=== PATIENT | male | born 1950 | race Caucasian/White ===

== ENCOUNTER 2017-08-15 09:45 | Inpatient (IN) | payer OTHER ==
[~2017-08-15] VITALS: Ht 185.4 cm; Wt 101.2 kg
--- NOTE | ~2017-08-15 | HC ---
[facility] [place] [address] CONSULTATION Name: MELECIO EAST NIKIA Room #: 349-I ADM IN M.R.#: [id number] Admission: 08/15/17 Attend Phys: Hiren Nelson MD Discharge: Date of : 46 Report #: [id number] THIS REPORT FOR: //name// CC: Hiren MURPHY Physician staff DATE OF SERVICE: 08/15/2017 HISTORY OF PRESENT ILLNESS: This is a 67-year-old male patient who was evaluated by me for visual changes and ataxia. The patient went to sleep around 11:00 feeling fine and then got up around 7:00 this morning with the above described symptoms. Symptoms came spontaneously without trauma. They were moderately severe to severe. They have become somewhat better. They have not deteriorated any. He does have a mild headache associated with that and he wants aspirin for that. He never had any stroke-like symptoms before. He also has what looks like some dressing apraxia with it. REVIEW OF SYSTEMS: Indicate that this patient has a history of hypertension, he takes medications. He does not take his own blood pressure all the time, but when he goes to his family physician his blood pressure is typically unremarkable. He has a history of pancreatitis. I carried out the 14-point review of system. He has visual symptom, but no real cardiac, respiratory, ENT, GI, , musculoskeletal, constitutional, dermatological, hematological, psychiatric, throat or allergic symptom associated with present symptomatology. PAST MEDICAL HISTORY: Negative for stroke. FAMILY HISTORY: Negative for early age stroke. SOCIAL HISTORY: He is retired and he indicates he does not smoke or drink alcohol. PHYSICAL EXAMINATION: The patient's examination indicate he is alert, responsive, able to follow simple and complex command. His speech, concentration, fund of knowledge and memory is at baseline. Cranial nerve examination does indicate rather dense left hemianopsia, which according to him is improving, but he still has on my examination virtually no vision in the left visual field. Otherwise, cranial nerve examinations appear unremarkable. His strength, sensation, reflexes and tone looks unremarkable. There is no meningeal sign. There is no carotid bruit. I could not look at the fundus. His pulses are palpable. He has no edema, cyanosis or jaundice. He is a nicely built individual who does not have any dysmorphic features of eyes, ears and face. He has no evidence of atrial fibrillation and his cardiac examination is unremarkable. No respiratory difficulty or rhonchi was noticed on either side. His blood pressure is 174/80, respiration is 14, pulse is 64 and temperature is [address] [address] CONSULTATION Name: MELECIO EAST [place] Room #: 349-I [facility] IN ..#: [id number] Admission: 08/15/17 Attend Phys: Hiren Nelson MD Discharge: Date of : 46 Report #: [id number] 97.8. LABORATORY DATA: His WBC count is 5.8 and sodium is 141. At one time his B12 level was done for some reason in 2010 and it was low. I reviewed the MRI films myself and then discussed with the radiologist. He has a stroke in the right occipital lobe, which is showing up on diffusion weighted as well as flair images. His vessels are clean and radiologist did not think doing CT angiogram will add anything. IMPRESSION: 1. Right occipital stroke. 2. Multiple other satellite stroke. 3. Need extensive workup to exclude the possibility of embolization from heart. 4. Stroke occurred when the patient was taking 81 mg of aspirin and we may have to switch him to either full aspirin or Plavix depending upon the workup. RECOMMENDATIONS: 1. Echocardiogram. 2. May need JOSE ALFREDO depending upon that. 3. Will need 30 days event monitor to look for atrial fibrillation. 4. More blood workup. 5. His B12 level was low, so his homocysteine level may be high. We cannot check homocysteine in the hospital because of the hospital policies and we will check B12 level again here. 6. Discussed with him about doing exercises and eating healthy. He indicated he will do that. 7. Need to address the question of statin once the patient's LDL and HDL is available. All of it was discussed with the patient in detail. The patient was discussed with Emergency Room physician multiple times and I also discussed with Dr. Nelson who is going to be the admitting physician. I recommended that the patient be put back on the medication he was on for the blood pressure, but no additional blood pressure medication be given to allow permissive hypertension. By: [id number] Carmelo Reaves MD /nt
--- NOTE | ~2017-08-15 | EKG ---
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
--- NOTE | ~2017-08-15 | 2DMMODE ---
[facility] [address] [place] [address] 2 D/M-MODE ECHOCARDIOGRAM Name: MELECIO EAST NIKIA Room #: 349-I ADM IN .R.#: [id number] Admission: 08/15/17 Attend Phys: Hiren Nelson MD Discharge: Date of : 46 Date of Service: 08/15/17 1716 Report #: [id number] THIS REPORT FOR: //name// APPROVED REPORT Study performed: 08/15/2017 14:23:18 EXAM: Comprehensive 2D, Doppler, and color-flow Echocardiogram Patient Location: Bedside Room #: 244 Status: routine BSA: 2.28 HR: 50 bpm Rhythm: NSR Other Information Study Quality: Good Indications CVA/TIA Hypertension/HDD 2D Dimensions RVDd: 39.74 mm LVEF(%): 66.56 (>50%) IVSd: 9.02 (7-11mm) LVOT Diam: 23.34 (18-24mm) LVDd: 41.79 mm PWd: 9.26 (7-11mm) Ascending Ao: 31.72 (22-36mm) LVDs: 26.57 (25-40mm) Aortic Root: 34.70 mm Cannon's LVEF: 66.56 % Volumes Left Atrial Volume (Systole) Single Plane 4CH: 56.32 mL Single Plane 2CH: 53.69 mL LA ESV Index: 26.00 mL/m2 Aortic Valve AoV Peak Perez.: 1.23 m/s AO Peak Gr.: 6.07 mmHg LVOT Max P.45 mmHg LVOT Max V: 0.93 m/s LIANA Vmax: 3.23 cm2 Mitral Valve E/A Ratio: 1.1 [facility] [place] [address] [place] [address] 2 D/M-MODE ECHOCARDIOGRAM Name: MELECIO EAST [place] Room #: 349-I ADM IN .R.#: [id number] Admission: 08/15/17 Attend Phys: Hiren Nelson MD Discharge: Date of : 46 Date of Service: 08/15/17 1716 Report #: [id number] Decel. Time: 190.42 ms MV E Max Perez.: 0.78 m/s MV A Perez.: 0.68 m/s MV PHT: 55.22 ms IVRT: 115.34 ms Pulmonary Valve PV Peak Perez.: 0.70 m/s PV Peak Gr.: 1.97 mmHg Pulmonary Vein P Vein S: 0.69 m/s P Vein A: 0.27 m/s P Vein D: 0.42 m/s P Vein A Dur.: 106.1 msec P Vein S/D Ratio: 1.64 Tricuspid Valve TR Peak Perez.: 2.50 m/s RAP Estimate: 5.00 mmHg TR Peak Gr.: 25.10 mmHg PA Pressure: 30.00 mmHg Left Ventricle The left ventricle is normal size. There is normal LV segmental wall motion. There is normal left ventricular wall thickness. The left ventricular systolic function is normal. The left ventricular ejection fraction is within the normal range. LVEF is 55-60%. The left ventricular diastolic function is normal. Right Ventricle The right ventricle is normal size. The right ventricular systolic function is normal. Atria The left atrium size is normal. Interatrial septum is intact without evidence of ASD or PFO. The right atrium size is normal. Aortic Valve The aortic valve is normal in structure. Trace aortic regurgitation. There is no aortic valvular stenosis. Mitral Valve The mitral valve is normal in structure. Trace mitral regurgitation. No evidence of mitral valve stenosis. Tricuspid Valve The tricuspid valve is normal in structure. Trace tricuspid regurgitation. [facility] [address] [place] [address] 2 D/M-MODE ECHOCARDIOGRAM Name: MELECIO EAST Room #: 349-I ADM IN ..#: [id number] Admission: 08/15/17 Attend Phys: Hiren Nelson MD Discharge: Date of : 46 Date of Service: 08/15/17 1716 Report #: [id number] Pulmonic Valve The pulmonary valve is normal in structure. There is no pulmonic valvular regurgitation. Great Vessels The aortic root is normal in size. IVC is normal in size and collapses >50% with inspiration. Pericardium There is no pericardial effusion. <Conclusion> The left ventricle is normal size. LVEF is 55-60%. The left ventricular diastolic function is normal. The right ventricle is normal size. The left atrium size is normal. The right atrium size is normal. Trace aortic regurgitation. Trace mitral regurgitation. Trace tricuspid regurgitation. The aortic root is normal in size. There is no pericardial effusion. <ELECTRONICALLY SIGNED> By: Jason Villa MD, FACC 08/15/171715 15 15 Jason Villa MD, FACC /INF
[~2017-08-15 09:45] MED LIST: ACETAMINOPHEN325 M1 PO; ALEVE220 MG; ALEVE220 MG PO; ALLOPURINOL 10100 M1 PO; AZOR 5-40 MG T1 EACH PO; CLONAZEPAM PO; COLACE100 MG PO; COLCRYS0.6 MG PO; HYDROCODONE-IB1 EACH PO; KLONOPIN1 MG PO; TRAMADOL 50 MG50 MG
[2017-08-15 09:54] VITALS: BP 168/94
[2017-08-15] MEDS ORDERED: LIPITOR 20 MG T20 M1 PO (09:57)
[2017-08-15] MEDS ORDERED: LOSARTAN POTASS50 MG PO (09:57)
[2017-08-15] MEDS ORDERED: ULORIC40 MG PO (09:57)
[2017-08-15] MEDS ORDERED: ASPIRIN EC325 M1 PO (09:58)
[2017-08-15 10:08] LABS: ABSOLUTE NEUTROPHILS 4.1 thou/uL (1.4-8.2); BASOPHILS 1.2 % (0.0-2.0); EOSINOPHILS 2.4 % (0.0-3.0); HEMATOCRIT 45.4 % (42.0-52.0); HEMOGLOBIN 15.5 gm/dL (14.0-18.0); LYMPHOCYTES 18.3 % (24.0-44.0); MCH 28.3 pg (26.0-34.0); MCHC 34.1 g/dL (28.0-37.0); MONOCYTES 8.1 % (1.0-8.0); PLATELET COUNT 156 thou/uL (150-400); RBC 5.47 mil/uL (4.50-6.00); RDW 14.9 % (10.5-14.5); WBC 5.8 thou/uL (4.0-11.0)
[2017-08-15 10:16] LABS: ANION GAP 7 mmol/L (7-16); BUN 9 mg/dL (7-18); CHLORIDE 107 mmol/L (98-107); CO2 28 mmol/L (21-32); CREATININE 1.1 mg/dL (0.7-1.3); GLUCOSE 120 mg/dL (74-106); POTASSIUM 4.1 mmol/L (3.5-5.1); SODIUM 142 mmol/L (136-145)
[2017-08-15 10:25] LABS: ALBUMIN 3.7 g/dL (3.4-5.0); SGOT 29 U/L (15-37); SGPT 46 U/L (30-65); TOTAL BILIRUBIN 0.6 mg/dL (<0.1-1.0); TOTAL PROTEIN 7.2 g/dL (6.4-8.2); TROPONIN-I <0.06 ng/mL (<0.06)
[2017-08-15 10:34] LABS: PROTIME 9.9 Seconds (9.3-11.4)
[2017-08-15 10:43] LABS: URINE BLOOD NEGATIVE (Negative); URINE CLARITY CLEAR; URINE COLOR YELLOW; URINE GLUCOSE-RANDOM* NEGATIVE (Negative); URINE KETONES TRACE (Negative); URINE LEUKOCYTES-REFLEX NEGATIVE (Negative); URINE NITRITE-REFLEX NEGATIVE (Negative); URINE PROTEIN (DIPSTICK) TRACE (Negative); URINE SPECIFIC GRAVITY >= 1.030 (1.005-1.035); URINE UROBILINOGEN 0.2 E.U./dl (0.2-1.0)
[2017-08-15 10:46] LABS: ICTOTEST (BILI CONFIRMATORY) Negative (Negative); URINE BILIRUBIN NEGATIVE (Negative)
[2017-08-15 12:43] VITALS: BP 128/60
[2017-08-15 13:18] VITALS: BP 174/80
[2017-08-15 16:41] VITALS: BP 164/94
[2017-08-15 19:10] VITALS: BP 149/84
[2017-08-16 04:50] VITALS: BP 132/79
[2017-08-16 05:23] LABS: ABSOLUTE NEUTROPHILS 4.6 thou/uL (1.4-8.2); BASOPHILS 1.2 % (0.0-2.0); EOSINOPHILS 1.6 % (0.0-3.0); HEMATOCRIT 40.9 % (42.0-52.0); HEMOGLOBIN 14.2 gm/dL (14.0-18.0); LYMPHOCYTES 17.2 % (24.0-44.0); MCH 28.1 pg (26.0-34.0); MCHC 34.8 g/dL (28.0-37.0); MCV 80.8 fL (80.0-100.0); MONOCYTES 9.4 % (1.0-8.0); PLATELET COUNT 142 thou/uL (150-400); POLYS 70.6 % (36.0-66.0); RBC 5.06 mil/uL (4.50-6.00); RDW 14.7 % (10.5-14.5); WBC 6.6 thou/uL (4.0-11.0)
[2017-08-16 06:25] LABS: ANION GAP 11 mmol/L (7-16); BUN 10 mg/dL (7-18); CALCIUM 8.3 mg/dL (8.5-10.1); CHLORIDE 105 mmol/L (98-107); CHOLESTEROL 116 mg/dL (<200); CO2 25 mmol/L (21-32); GLUCOSE 95 mg/dL (74-106); HDL CHOLESTEROL 40 mg/dL (>40); LDL CHOLESTEROL 60 mg/dL (<100); MAGNESIUM 1.7 mg/dL (1.8-2.4); POTASSIUM 3.6 mmol/L (3.5-5.1); SODIUM 141 mmol/L (136-145); TC:HDL 2.9 Ratio (Not establshd); TRIGLYCERIDE 84 mg/dL (<150); VLDL 17 mg/dL (<40)
[2017-08-16 06:42] LABS: TSH 1.566 uIU/mL (0.358-3.740)
[2017-08-16 07:07] VITALS: BP 136/76
[2017-08-16] MEDS ORDERED: ASPIR 8181 MG PO (08:46)
[2017-08-16] MEDS ORDERED: PLAVIX 75 MG TA75 M1 PO (08:46)
[2017-08-16 09:45] VITALS: BP 136/76
== END 2017-08-16 10:16 | disposition home or self-care (01) | DRG 64 ==
LOC: ER 09:45 → 3W 12:31 → EROBS 12:31 → ICU 13:15 → 3W 16:06 → ENTRNSPT 08-16 10:09 → EDTRNSPTSTS 08-16 10:11 → 3W 08-16 10:16
PROVIDERS: Nurse Practitioner; Nurse Practitioner Family; Psychiatry & Neurology Neuromuscular Medicine
DX: I63.9 Cerebral infarction, unspecified (principal); E43 Unspecified severe protein-calorie malnutrition; G40.909 Epilepsy, unspecified, not intractable, without status epilepticus; I10 Essential (primary) hypertension; M19.90 Unspecified osteoarthritis, unspecified site; E78.5 Hyperlipidemia, unspecified; M10.9 Gout, unspecified; F17.220 Nicotine dependence, chewing tobacco, uncomplicated; Z60.2 Problems related to living alone; Z88.8 Allergy status to other drugs, medicaments and biological substances; Z88.6 Allergy status to analgesic agent; Z79.82 Long term (current) use of aspirin; Z79.899 Other long term (current) drug therapy; Z68.29 Body mass index [BMI] 29.0-29.9, adult
CPT/HCPCS: 10879

== ENCOUNTER → 2018-02-19 | Outpatient (CLI) | payer OTHER ==
[~2018-02-19] MED LIST changes: +ASPIR 8181 MG PO; +ASPIRIN EC325 M1 PO; +LIPITOR 20 MG T20 M1 PO; +LOSARTAN POTASS50 MG PO; +PLAVIX 75 MG TA75 M1 PO; +ULORIC40 MG PO
== END ==
LOC: MRI 14:36
DX: I63.40 Cerebral infarction due to embolism of unspecified cerebral artery (principal)

== ENCOUNTER → 2019-07-23 | Outpatient (CLI) | payer OTHER | LOC: SJCVC 11:00 | DX: R00.2 Palpitations (principal); I48.0 Paroxysmal atrial fibrillation; E78.5 Hyperlipidemia, unspecified; D68.59 Other primary thrombophilia; I10 Essential (primary) hypertension; I63.431 Cerebral infarction due to embolism of right posterior cerebral artery; K21.9 Gastro-esophageal reflux disease without esophagitis; Z82.49 Family history of ischemic heart disease and other diseases of the circulatory system; Z87.891 Personal history of nicotine dependence; Z79.899 Other long term (current) drug therapy ==

== ENCOUNTER → 2020-02-04 | Outpatient (CLI) | payer OTHER | LOC: SJCVCIMAG 08:57 | PROVIDERS: ATTEND Internal Medicine Cardiovascular Disease | DX: I07.1 Rheumatic tricuspid insufficiency (principal); R94.31 Abnormal electrocardiogram [ECG] [EKG]; I49.3 Ventricular premature depolarization; I48.0 Paroxysmal atrial fibrillation; K21.9 Gastro-esophageal reflux disease without esophagitis; D68.59 Other primary thrombophilia; I63.9 Cerebral infarction, unspecified; E78.5 Hyperlipidemia, unspecified; R09.89 Other specified symptoms and signs involving the circulatory and respiratory systems; I10 Essential (primary) hypertension; Z79.899 Other long term (current) drug therapy; Z87.891 Personal history of nicotine dependence ==

== ENCOUNTER → 2020-10-31 | Outpatient (CLI) | payer OTHER | LOC: SJCVCIMAG 07:39 | PROVIDERS: ATTEND Internal Medicine Cardiovascular Disease | DX: I71.4 Abdominal aortic aneurysm, without rupture (principal); I48.91 Unspecified atrial fibrillation; E78.5 Hyperlipidemia, unspecified; I10 Essential (primary) hypertension; Z86.73 Personal history of transient ischemic attack (TIA), and cerebral infarction without residual deficits ==

== ENCOUNTER → 2021-04-12 | Outpatient (CLI) | payer OTHER | LOC: SJCVCIMAG 11:09 | PROVIDERS: ATTEND Internal Medicine Cardiovascular Disease | DX: I10 Essential (primary) hypertension (principal); I49.9 Cardiac arrhythmia, unspecified ==